=== PATIENT | male | born 1990 | race Caucasian/White ===

== ENCOUNTER 2019-08-05 09:59 | Emergency (ER) | payer OTHER ==
[~2019-08-05] VITALS: Ht 185.4 cm; Wt 72.6 kg
--- NOTE | 2019-08-05 10:15 | NUR ---
BIB SELF C/O R ARM PAIN AND NECK PAIN STARTED LAST WEEK, DENIES INJURY. ON ROOM AIR, BREATHING EVENLY AND UNLABORED. CONNECTED TO THE MONITOR ACCORDINGLY. WILL CONTINUE TO MONITOR ACCORDINGLY.
[2019-08-05] MEDS ORDERED: KETOROLAC TROMETHAMINE INJ 30 MG/ML VIAL ONE (12:26)
[2019-08-05] MEDS ORDERED: ACETAMINOPHEN ES 500 MG TABLET ONE (12:27)
[2019-08-05] MEDS ORDERED: ACETAMINOPHEN ES 500 MG TABLET PO ONE (12:30)
[2019-08-05] MEDS ORDERED: KETOROLAC TROMETHAMINE INJ 30 MG/ML VIAL IM ONE (12:30)
[2019-08-05 14:56] VITALS: BP 118/76
--- NOTE | 2019-08-05 14:57 | NUR ---
Patient discharged to home in stable condition. Written and verbal after care instructions given. Patient verbalizes understanding of instruction.
== END 2019-08-05 14:57 | disposition home or self-care (01) ==
LOC: ER 10:10
DX: M54.2 Cervicalgia (principal); M54.12 Radiculopathy, cervical region; Z60.2 Problems related to living alone
CPT/HCPCS: 72125; 73080; 96372; 99284; J1885